=== PATIENT | female | born 1995 | race Hispanic/Latino ===

== ENCOUNTER 2016-06-25 22:35 | Emergency (ER) | payer OTHER ==
[~2016-06-25] VITALS: Ht 157.5 cm; Wt 178.4 kg
[~2016-06-25 22:35] MED LIST: LEVO200T PO
[2016-06-25 22:39] VITALS: BP 147/97; PULSE 72; RESP 16; O2SAT 100
--- NOTE | 2016-06-25 23:02 | ED.REPORT ---
HPI-URI / Cough / Cold Date of Service Jun 25, 2016 ED Provider: Dylon Jacobson MD This is a 21 year old female with a history of hypothyroidism presenting to the emergency department complaining of dizziness that began one week ago..Dizziness described as a spinning sensation that occurs upon standing up. Associated symptoms include nausea, chills, and L ear ache. Denies sore throat, headache, vomiting, diarrhea, fever, constipation, abdominal pain, or change LOC. Pt adds that she has not taken her thyroid medication in 9 months. Nursing Notes Stated Complaint: NAUSEA, DIZZY, CHEST DISCOMFORT Chief Complaint: Female Abdominal Pain Nursing Notes Reviewed: Yes Allergies: Coded Allergies: No Known Allergies (Verified Allergy, Unknown, 03/18/14) Scheduled Levothyroxine (Synthroid) 200 Mcg Tablet 200 MCG PO DAILY General Time Seen by MD: 22:59 Chief Complaint Other Hx Obtained From: Patient Arrived By: Walk-in Onset Occurred: 1 week ago Symptom Duration: Since onset Severity: Current: No pain currently Pertinent Negative: Pt denies other symptoms Recent Healthcare: No recent doctor visit, No recent hospitalization Similar Sx Previous: No Past Medical History Past Medical History Hypothyroidism Past Surgical History Denies Smoking History Never Smoker Ambulatory Status Independent Review of Systems Constitutional: Reports: Chills, Denies: Fever Ears / Nose / Throat: Reports: Earache left, Denies: Earache right, Throat pain Respiratory: Denies: Non-productive cough, Shortness of breath GI: Reports: Nausea, Denies: Abdominal pain, Vomiting Neurologic: Reports: Dizziness, Denies: Headache Complete sys rev & neg: except as marked. Physical Exam Initial Vital Signs Vital Signs (First) Date Time Temp Pulse Resp B/P Pulse Ox O2 Delivery O2 Flow Rate FiO2 06/25/16 22:39 36.1 72 16 147/97 100 Room Air Initial VS: Reviewed, Vital signs abnormal Head / Eyes: Atraumatic, Normocephalic, PERRL Neck: Supple, Non-tender, Full range of motion Cardiovascular: Regular rate & rhythm, Heart sounds normal, Intact distal pulses Abdomen / GI: Soft, Non-tender, No guarding, No rebound, No distention Extremities: Vascular intact, Neuro intact, No swelling, No tenderness Skin: Warm, Dry, No cyanosis Neurologic: Alert, Oriented, Nonfocal Psychiatric: Mood/affect normal, Behavior normal, Normal thought content General/Constitutional: Awake, Alert Appearance / Presentation: Positive: Obese ENT: Airway patent, Mucous membranes moist, Pharynx NL, Ext aud canal NL, Nose exam NL, No sinus tenderness Left Ear / Mastoid: Positive: Tympanic membrane red Respiratory / Chest: Breath sounds NL, Breath sounds = bilat, No respiratory distress, No rales, No rhonchi, No wheezing, No retractions, No stridor Interpretation & Diagnostics Lab Results Interpretation Result Diagram: 06/25/16 2314 06/25/16 2314 Test 06/25/16 22:56 06/25/16 23:08 06/25/16 23:14 Hold Purple Top Tube Received (Received) Hold Blue Top Tube Received (Received) Hold Red Top Tube Received (Received) Hold [place] Top Tube Received (Received) Hold Urine Received (Received) White Blood Count 9.2th/mm3 (3.8-10.1) Red Blood Count 4.30mil/mm3 (3.90-5.20) Hemoglobin 12.1g/dL (12.0-15.6) Hematocrit 38.3% (35.0-46.0) Mean Corpuscular Volume 89.1fL (81-100) Mean Corpuscular Hemoglobin 28.1pg (27.0-35.0) Mean Corpuscular Hemoglobin Concent 31.6% (32.0-37.0) Red Cell Distribution Width 15.3% (12.3-15.4) Platelet Count 322bil/L (150-400) Neutrophils (%) (Auto) 59% (40-74) Lymphocytes (%) (Auto) 29% (14-46) Monocytes (%) (Auto) 8% (4-12) Eosinophils (%) (Auto) 3% (0-5) Basophils (%) (Auto) 1% (0-3) Sodium Level 141mEq/L (134-144) Potassium Level 3.8mEq/L (3.5-5.2) Chloride Level 101mEq/L (97-108) Carbon Dioxide Level 27mmol/L (18-29) Blood Urea Nitrogen 13mg/dL (6-20) Creatinine 0.95mg/dL (0.57-1.00) Estimat Glomerular Filtration Rate 104mL/min (>59) Glucose Level 96mg/dL (60-99) Calcium Level 8.9mg/dL (8.5-10.1) Magnesium Level 2.1mg/dL (1.6-2.6) Total Bilirubin 0.5mg/dL (0.0-1.2) Aspartate Amino Transf (AST/SGOT) 27U/L (0-50) Alanine Aminotransferase (ALT/SGPT) 17U/L (0-32) Alkaline Phosphatase 98U/L (25-150) Total Protein 9.0g/dL (6.4-8.4) Albumin 4.5g/dL (3.4-5.0) Lipase 22U/L (13-60) Thyroid Stimulating Hormone (TSH) 390.500uIU/mL (0.450-4.500) Free Thyroxine 0.39ng/dL (0.82-1.77) Lab Results Interpretation: Elevated TSH, decreased free T4 indicative of hypothyroidism No anemia Re-Eval/Medical Decision Med Decision/Clinical Course 21-year-old female who presents with vertigo and just general malaise. She has a left otitis media. Her vertigo is likely related to that. She improved with meclizine. She will be discharged home with amoxicillin and instructions to purchase [id number] meclizine. She also has hypothyroidism and it is recommended that she get back on her thyroid medication. No evidence of anemia or significant dehydration. Re-Evaluation/Progress : Time of Eval: 01:02 Re-Evaluation/Progress Note: Discussed lab results and plan for discharge. Pt understands and agrees with plan, all questions addressed. Counseled Regarding: Diagnosis, Need for follow-up, When/why to return to ED Discharge & Departure Impression: Primary Impression: Otitis media Otitis media type: suppurative Laterality: left Chronicity: acute Recurrence: not specified Spontaneous tympanic membrane rupture: without spontaneous rupture Qualified Code: H66.002 - Acute suppurative otitis media without spontaneous rupture of ear drum, left ear Additional Impressions: Vertigo Hypothyroidism Hypothyroidism type: unspecified Qualified Code: E03.9 - Hypothyroidism, unspecified Disposition: Home Discharge Condition All VS Reviewed: Yes Condition: Stable Patient Instructions: Hypothyroidism (ED), Otitis Media (ED) Additional Instructions: Amoxicillin 500 mg by mouth 3 times a day, #30 dispense. Meclizine 25 mg by mouth twice a day, to be purchased [id number]. Drink plenty of fluid. Restart your thyroid and take it regularly. You will feel much better. Referrals: Nery Munson (PCP) Scribe Attestation Portions of this note were transcribed by Chloe Tucker. I, Dr. Jacobson personally performed the history, physical exam and medical decision-making; I reviewed and confirmed the accuracy of the information in the transcribed note. Signed by: ke Hoover. 06/25/2016, 02:00. Dylon Jacobson MD Jun 25, 2016 23:02 CHLOE TUCKER Jun 25, 2016 23:09
[2016-06-25] MEDS ORDERED: 0.9% Sodium Chloride 1,000 ML IV ONE (23:14)
[2016-06-25] MEDS ORDERED: Ondansetron 2 mg/mL 2 mL Inj IVPUSH PRN (23:15)
[2016-06-25 23:24] LABS: MONOCYTES % (AUTO) 8 % (4-12); Mean Corpuscular Hemoglobin 28.1 pg (27.0-35.0); Mean Corpuscular Volume 89.1 fL (81-100); NEUTROPHILS % (AUTO) 59 % (40-74); Platelet Count 322 bil/L (150-400)
[2016-06-25 23:25] LABS: BASOPHILS % (AUTO) 1 % (0-3); EOSINOPHILS % (AUTO) 3 % (0-5)
[2016-06-25 23:47] LABS: Magnesium 2.1 mg/dL (1.6-2.6)
[2016-06-26 01:39] VITALS: BP 133/84; PULSE 72; RESP 16; O2SAT 99
[2016-06-26] MEDS ORDERED: _Amoxicillin 500 mg Capsule PO SCH (08:30)
== END 2016-06-26 01:30 | disposition home or self-care (01) ==
LOC: SED 22:35
DX: H66.002 Acute suppurative otitis media without spontaneous rupture of ear drum, left ear (principal); R42 Dizziness and giddiness; E03.9 Hypothyroidism, unspecified
CPT/HCPCS: 80053; 81025; 83690; 83735; 84439; 84443; 85025; 96361; 96374; 99284; J2405; J7030